=== PATIENT | female | born 1975 | race Caucasian/White ===

== ENCOUNTER 2016-11-14 12:54 | Emergency (ER) | payer OTHER ==
[2016-11-14 12:59] VITALS: RESP 16; TEMP 98.1
[2016-11-14] MEDS ORDERED: IBUPROFEN 600 MG TAB PO ONE (13:55)
[2016-11-14] MEDS ORDERED: ASPIRIN 325 MG TAB PO ONE (13:55)
[2016-11-14] MEDS ORDERED: HYDROCODONE/APAP 5/325 TAB PO ONE (13:57)
--- NOTE | 2016-11-14 13:57 | EDPHY ---
H & P Time Seen by Provider: 11/14/16 13:03 HPI/ROS: CHIEF COMPLAINT: Right knee pain HISTORY OF PRESENT ILLNESS: 41-year-old female presents emergency room complaining of right knee pain. Patient was skiing today going slow around a switch back when she felt her right see go in 1 direction and her knee twisted laterally. Patient had immediate pain in her knee which made her fall to the ground patient was brought down the hill by melting furnace skimmer. Unable to bear weight since the accident. She denies previous injury to this leg, no numbness or tingling in her leg, no head strike, no neck pain, no other complaints. Smoking Status: Never smoked Physical Exam: GEN: Awake, alert, oriented, no acute distress RESP: nl resp effort MSK: Right knee with effusion, decreased range of motion due to pain, mild medial and lateral joint line tenderness, 2+ pedal pulses, sensation intact to light touch no ankle or hip pain, cap refill less than 2 seconds SKIN: No break in skin Constitutional: Initial Vital Signs Temperature (C) 36.7 C 11/14/16 12:56 Heart Rate 85 11/14/16 12:56 Respiratory Rate 16 11/14/16 12:56 Blood Pressure 139/94 H 11/14/16 12:56 O2 Sat (%) 97 11/14/16 12:56 O2 Delivery Mode Room Air Allergies/Adverse Reactions: Penicillins Allergy (Verified 11/14/16 12:57) Home Medications: Medication Instructions Recorded Hydrocodone/APAP 5/325 [Bledsoe 1 tab PO Q4H PRN #14 tab 11/14/16 5/325] Medical Decision Making - Diagnostics Imaging: Right knee x-ray independently reviewed by me- Impression: Anterior cruciate ligament avulsion fracture/tibial spine avulsion fracture with a large lipohemarthrosis. Dictated By: Alexi Campbell MD Procedures: A posterior long leg Ortho Glass splint was applied. After application of the splint, I returned and re-examined the patient. The splint was adequately immobilizing the joint. The patients circulation and sensation were intact distal to the splint. ED Course/Re-evaluation: 41-year-old female with a tibial spine fracture likely due to an ACL injury. Patient is unable to fully extend leg due to pain, a knee immobilizer it is not appropriate for her due to the pain it causes her. She has been placed in a long leg posterior Ortho Glass splint and given crutches. The patient lives in [place] and is driving home over the next 2 days. The patient has been placed in bilateral thigh-high Se hose. She has been given 1325 mg of aspirin in the emergency department and I have instructed her to take 325 mg daily until she follows up with orthopedist back home. I have recommended ankle pumps with her left leg on her drive home. Patient is also given a prescription for Bledsoe. She is given strict return precautions for any neurovascular compromise. - Data Points Medications Given: Discontinued Medications Hydrocodone Bitart/Acetaminophen (Bledsoe 5/325) 1 tab PO EDNOW ONE Stop: 11/14/16 13:58 Last Admin: 11/14/16 14:09 Dose: 1 tab Aspirin (Aspirin) 325 mg PO EDNOW ONE Stop: 11/14/16 13:56 Last Admin: 11/14/16 14:09 Dose: 325 mg Ibuprofen (Motrin) 400 mg PO EDNOW ONE Stop: 11/14/16 13:56 Last Admin: 11/14/16 14:09 Dose: 400 mg Departure - Departure Disposition: Home, Routine, Self-Care Clinical Impression: Fracture of right tibial spine Qualifiers: Encounter type: initial encounter Fracture type: closed Fracture alignment: displaced Qualified Code(s): S82.111A - Displaced fracture of right tibial spine , initial encounter for closed fracture Condition: Good Instructions: Leg Fracture (ED), ACL Injury (ED) Additional Instructions: Rest, ice, elevate, keep splint in place until you follow up with orthopedist, use crutches, take 325 mg of aspirin daily, wear Se hose until you follow up with orthopedist. Take 400 mg of ibuprofen every 8 hours with food for 3-5 days , take Bledsoe for severe pain. Follow up with the orthopedist back home at 1st available appointment. Return to the emergency department for any pain that is not controlled, numbness or tingling in this leg, any new symptoms or concerns. Referrals: JOSESITO NORMAN [Other] - As per Instructions Prescriptions: Hydrocodone/APAP 5/325 [Bledsoe 5/325] 1 tab PO Q4H PRN #14 tab PRN Reason: Pain, Moderate
[2016-11-14 15:46] VITALS: BP 132/96; PULSE 88; O2SAT 95
== END 2016-11-14 15:45 | disposition home or self-care (01) ==
DX: S82.111A Displaced fracture of right tibial spine, initial encounter for closed fracture (principal); V00.321A Fall from snow-skis, initial encounter; Y99.8 Other external cause status; Y93.23 Activity, snow (alpine) (downhill) skiing, snowboarding, sledding, tobogganing and snow tubing